=== PATIENT | male | born 1960 ===

== ENCOUNTER → 2020-09-15 | Emergency (ER) | payer OTHER ==
[~2020-09-15] VITALS: Ht 172.7 cm; Wt 79.4 kg
[~2020-09-15] MED LIST: CHILDREN'S ASPI81 MG
== END | disposition home or self-care (01) ==
LOC: ER 00:04
DX: R07.89 Other chest pain (principal)

== ENCOUNTER 2021-01-18 20:09 | Inpatient (IN) | payer OTHER ==
[~2021-01-18] VITALS: Ht 172.7 cm; Wt 79.4 kg
== END 2021-01-21 12:16 | disposition home or self-care (01) | DRG 389 ==
LOC: ER 20:09 → SEC-K 01-19 11:07 → SURH 01-19 17:35
PROVIDERS: ADMIT Surgery; ATTEND Surgery
DX: K56.690 Other partial intestinal obstruction (principal); R18.8 Other ascites; E86.0 Dehydration; E87.8 Other disorders of electrolyte and fluid balance, not elsewhere classified; Z20.822 Contact with and (suspected) exposure to COVID-19; N40.0 Benign prostatic hyperplasia without lower urinary tract symptoms

== ENCOUNTER 2023-08-06 11:22 | Outpatient (CLI) | payer OTHER | END 2023-08-06 11:41 | disposition home or self-care (01) | LOC: SONOGRAMA 11:22 | PROVIDERS: ATTEND Family Medicine | DX: K40.90 Unilateral inguinal hernia, without obstruction or gangrene, not specified as recurrent (principal) ==

== ENCOUNTER 2023-09-12 06:44 | Day surgery (SDC) | payer OTHER ==
[2023-09-05 11:44] LABS: PH,URINE 5.5 (5.0-8.0); URINE APPEARANCE Clear; URINE BILIRRUBIN Negative (NEGATIVE); URINE BLOOD Negative; URINE COLOR Yellow; URINE GLUCOSE Negative (NEGATIVE); URINE LEUKOCYTE Negative; URINE NITRATE Negative; URINE PROTEIN Negative (NEGATIVE)
[2023-09-05 11:44] LABS: HEMATOCRIT 45.8 % (39.0-48.0); HEMOGLOBIN 15.8 g/dL (13-16.00); MEAN CELL VOLUME 89.6 fL (80.0-100.00); MEAN CORPUSCULAR HEMOGLOBIN 30.9 pg (27.00-32.0); MEAN CORPUSCULAR HGB CONC 34.5 g/dl (32.0-36.0); PLATELET COUNT 237 K/uL (150-450); RED BLOOD COUNT 5.11 M/uL (4.00-6.00); RED CELL DISTRIBUTION WIDTH 12.9 % (11.5-14.5)
[2023-09-05 11:47] LABS: URINE BACTERIA 8.8 uL (0.0-1933); URINE EPITHELIAL CELLS 1.5 uL (0.0-38.8); URINE RBC 3.3 uL (0.0-20.8); URINE WBC 2.7 uL (0.0-23.2)
[2023-09-05 12:09] LABS: INR 0.99; PARTIAL THROMBOPLASTIN TIME 28.6 SECONDS (22.0-34.0); PROTHROMBIN TIME 10.4 SECONDS (9.0-11.5)
[2023-09-05 12:19] LABS: ALBUMIN 4.5 gm/dL (3.4-5.0); BILIRUBIN TOTAL 0.91 mg/dL (0.3-1.2); CREATININE SERUM 0.88 mg/dL (0.70-1.30); GFR 87.75; GLOBULINA 3.5 G/DL (2.4-3.5); POTASSIUM 4.58 mEq/L (3.5-5.1)
[~2023-09-12 06:44] MED LIST changes: +COZAAR100 MG PO; +LIPITOR20 MG PO
[2023-09-12] MEDS ORDERED: TRAMADOL HCL50 MG PO (10:10)
[2023-09-12] MEDS ORDERED: MIRALAX17 GM PO (10:10)
[2023-09-12] MEDS ORDERED: TYLENOL ARTHRI650 MG PO (10:10)
[2023-09-12] MEDS ORDERED: KETO10TA2 PO (10:10)
[2023-09-12] MEDS ORDERED: CEFAZOLIN SODIUM 1,000 MG VIAL ONE (10:30)
[2023-09-12] MEDS ORDERED: BUPIVACAINE HCL/PF 0.5% 30ML ML IJ ONE (11:00)
[2023-09-12] MEDS ORDERED: CEFAZOLIN SODIUM 1,000 MG VIAL IV ONE (11:00)
[2023-09-12] MEDS ORDERED: KETOROLAC TROMETHAMINE 30 MG VIAL IV ONE (11:00)
[2023-09-12] MEDS ORDERED: KETOROLAC TROMETHAMINE 30 MG VIAL ONE (11:22)
[2023-09-12] MEDS ORDERED: BUPIVACAINE HCL/PF 0.5% 30ML ML ONE (11:22)
== END 2023-09-12 17:20 | disposition home or self-care (01) ==
LOC: CIR.AMB 06:44
PROVIDERS: ATTEND Surgery
DX: K40.90 Unilateral inguinal hernia, without obstruction or gangrene, not specified as recurrent (principal); K42.0 Umbilical hernia with obstruction, without gangrene; I10 Essential (primary) hypertension; E78.5 Hyperlipidemia, unspecified; Z20.822 Contact with and (suspected) exposure to COVID-19
CPT/HCPCS: 49650; 49591; C1781